=== PATIENT | male | born 1960 | race Two or more races ===

== ENCOUNTER 2022-02-02 20:45 | Inpatient (IN) | payer MEDICAID, OTHER ==
[~2022-02-02] VITALS: Ht 167.6 cm; Wt 107.5 kg
[2022-02-02 22:08] LABS: Basophils # (auto) 0 10 ^3/uL (0-0.2); Basophils % (auto) 0.1 % (0.0-2.0); Eosinophils # (auto) 0 10 ^3/uL (0-0.8); Hematocrit 48.9 % (41.0-53.0); Hemoglobin 16.9 g/dL (13.5-17.5); Lymphocytes # (auto) 0.6 10 ^3/uL (0.4-5.4); Lymphocytes % (auto) 3.1 % (10.0-50.0); Mean Corpuscular Hemoglobin 29.9 pg (28.0-32.0); Mean Corpuscular Hgb Conc. 34.6 g/dL (32.0-36.0); Mean Corpuscular Volume 86.5 fL (80.0-100.0); Monocytes # (auto) 0.6 10 ^3/uL (0-1.3); Monocytes % (auto) 3.3 % (0.0-12.0); Neutrophils # (auto) 17.2 10 ^3/uL (1.6-8.6); Neutrophils % (auto) 93.5 % (37.0-80.0); Nucleated Red Blood Cells % 0.1 %; Red Blood Cells 5.66 10^6/uL (4.5-5.90); Red Cell Distribution Width 14.1 % (11.8-14.3); White Blood Cell 18.4 10^3/uL (4.4-10.8)
[2022-02-02 22:26] LABS: Calcium 10.1 mg/dL (8.5-10.1); Potassium 3.7 mmol/L (3.5-5.1)
[2022-02-02 22:29] LABS: BUN/Creatinine Ratio 8.8
[2022-02-02 22:33] LABS: Bilirubin, Total 0.9 mg/dL (0.2-1.0); Total Protein 10.6 g/dL (6.4-8.2)
[2022-02-03] MEDS ORDERED: SODIUM CHLORIDE 0.9% 1,000 ML IV ONE ×3 (00:45→02:30)
[2022-02-03 01:41] LABS: Lactic Acid w/Reflex 4.8 mmol/L (0.4-2.0)
[2022-02-03] MEDS ORDERED: PIPERACILLIN-TAZOB 3.375GM 100 ML IV ONE (04:00)
[2022-02-03 05:15] LABS: Urine Bacteria FEW /hpf (None Seen); Urine Blood 2+ /uL (Negative); Urine Hyaline Cast MANY /lpf (0 - 2); Urine Mucus FEW (None Seen); Urine Specific Gravity 1.023 (1.001-1.035); Urine Sperm PRESENT /hpf (None Seen); Urine WBC 5 /hpf (0 - 3)
[2022-02-03] MEDS ORDERED: MORPHINE SULFATE INJECTION 2 MG/ML SYRG IV PRN (06:30)
[2022-02-03] MEDS ORDERED: metroNIDAZOLE 500MG/100ML 100 ML IV ONE (06:30)
[2022-02-03] MEDS ORDERED: ONDANSETRON HCL 4 MG/2 ML VIAL IV PRN (06:30)
[2022-02-03] MEDS ORDERED: MORPHINE SULFATE 4 MG/ML SYR/VIAL IV PRN (06:30)
[2022-02-03] MEDS ORDERED: DEXTROSE (50%) 50ML SYRG IV PRN (06:30)
[2022-02-03] MEDS ORDERED: NITROGLYCERIN 0.4 MG SL TAB SL PRN (06:30)
[2022-02-03] MEDS: SODIUM CHLORIDE 0.9% 1,000 ML IV SCH ×2 (06:57→19:01)
[2022-02-03] MEDS: PANTOPRAZOLE 40 MG/10 ML VIAL INJ IV SCH (10:24)
[2022-02-03] MEDS: cefTRIAXone 1GM/50ML D5W 50 ML IV SCH (10:25)
[2022-02-03] MEDS: InsuLIN REG 1unit/0.01ml Soln (100units/ml) SC SCH ×2 (12:00→17:57)
[2022-02-03] MEDS: ACCU-CHEK COMFORT CURVE STRIP VI SCH ×2 (12:25→17:57)
[2022-02-03] MEDS: metroNIDAZOLE 500MG/100ML 100 ML IV SCH ×2 (14:00→21:07)
[2022-02-03 16:25] VITALS: BP 114/76
[2022-02-03 22:00] VITALS: BP 100/62
[2022-02-04] MEDS: ACCU-CHEK COMFORT CURVE STRIP VI SCH ×4 (00:40→19:15)
[2022-02-04] MEDS: InsuLIN REG 1unit/0.01ml Soln (100units/ml) SC SCH ×4 (00:41→18:00)
[2022-02-04] MEDS: SODIUM CHLORIDE 0.9% 1,000 ML IV SCH ×3 (02:38→22:11)
[2022-02-04 05:00] VITALS: BP 115/90
[2022-02-04 06:05] LABS: Basophils # (auto) 0 10 ^3/uL (0-0.2); Basophils % (auto) 0.1 % (0.0-2.0); Eosinophils # (auto) 0 10 ^3/uL (0-0.8); Hematocrit 40.1 % (41.0-53.0); Hemoglobin 14.1 g/dL (13.5-17.5); Mean Corpuscular Hemoglobin 29.8 pg (28.0-32.0); Mean Corpuscular Hgb Conc. 35.2 g/dL (32.0-36.0); Mean Corpuscular Volume 84.6 fL (80.0-100.0); Monocytes # (auto) 0.7 10 ^3/uL (0-1.3); Monocytes % (auto) 4.7 % (0.0-12.0); Neutrophils % (auto) 88.2 % (37.0-80.0); Nucleated Red Blood Cells % 0.1 %; Red Blood Cells 4.74 10^6/uL (4.5-5.90); Red Cell Distribution Width 14.3 % (11.8-14.3); White Blood Cell 14.8 10^3/uL (4.4-10.8)
[2022-02-04 06:14] LABS: Albumin 3.5 g/dL (3.4-5.0); Calcium 8.2 mg/dL (8.5-10.1)
[2022-02-04 06:19] LABS: BUN/Creatinine Ratio 23.3; Bilirubin, Total 0.7 mg/dL (0.2-1.0); Total Protein 7.9 g/dL (6.4-8.2)
[2022-02-04] MEDS: metroNIDAZOLE 500MG/100ML 100 ML IV SCH ×3 (06:31→22:04)
[2022-02-04 08:30] VITALS: BP 108/75
[2022-02-04] MEDS: cefTRIAXone 1GM/50ML D5W 50 ML IV SCH (09:39)
[2022-02-04] MEDS: PANTOPRAZOLE 40 MG/10 ML VIAL INJ IV SCH (09:39)
[2022-02-04 12:35] VITALS: BP 107/69
[2022-02-04 16:15] VITALS: BP 123/67
[2022-02-04 19:27] LABS: Amphetamine Screen, Urine NEGATIVE (NEGATIVE); Barbiturate Scree,Urine NEGATIVE (NEGATIVE); Benzodiazephine Screen, Urine NEGATIVE (NEGATIVE); Cannabinoid Screen, Urine NEGATIVE (NEGATIVE); Cocaine Screen, Urine NEGATIVE (NEGATIVE); Opiate Scree,Urine NEGATIVE (NEGATIVE); Phencyclidine Screen, Urine NEGATIVE (NEGATIVE)
[2022-02-04 22:00] VITALS: BP 97/66
[2022-02-05] MEDS: InsuLIN REG 1unit/0.01ml Soln (100units/ml) SC SCH ×4 (00:48→17:00)
[2022-02-05] MEDS: ACCU-CHEK COMFORT CURVE STRIP VI SCH ×4 (00:48→18:00)
[2022-02-05 05:00] VITALS: BP 95/70
[2022-02-05 05:24] LABS: Basophils # (auto) 0 10 ^3/uL (0-0.2); Basophils % (auto) 0.4 % (0.0-2.0); Eosinophils # (auto) 0 10 ^3/uL (0-0.8); Eosinophils % (auto) 0.4 % (0.0-7.0); Hematocrit 39.9 % (41.0-53.0); Hemoglobin 14.4 g/dL (13.5-17.5); Lymphocytes # (auto) 1.6 10 ^3/uL (0.4-5.4); Lymphocytes % (auto) 19.4 % (10.0-50.0); Mean Corpuscular Hemoglobin 30.2 pg (28.0-32.0); Monocytes # (auto) 0.5 10 ^3/uL (0-1.3); Monocytes % (auto) 5.6 % (0.0-12.0); Neutrophils # (auto) 6.2 10 ^3/uL (1.6-8.6); Neutrophils % (auto) 74.2 % (37.0-80.0); Nucleated Red Blood Cells % 0.2 %; Red Blood Cells 4.75 10^6/uL (4.5-5.90); Red Cell Distribution Width 14.2 % (11.8-14.3); White Blood Cell 8.4 10^3/uL (4.4-10.8)
[2022-02-05 05:43] LABS: Albumin 3.3 g/dL (3.4-5.0); Calcium 8.2 mg/dL (8.5-10.1); Magnesium 2.4 mg/dL (1.6-2.6); Potassium 3.1 mmol/L (3.5-5.1)
[2022-02-05 05:49] LABS: BUN/Creatinine Ratio 18.9; Bilirubin, Total 0.5 mg/dL (0.2-1.0); Total Protein 7.5 g/dL (6.4-8.2)
[2022-02-05] MEDS: metroNIDAZOLE 500MG/100ML 100 ML IV SCH ×3 (06:40→22:00)
[2022-02-05] MEDS: PANTOPRAZOLE 40 MG/10 ML VIAL INJ IV SCH (10:05)
[2022-02-05] MEDS: cefTRIAXone 1GM/50ML D5W 50 ML IV SCH (10:05)
[2022-02-05 10:08] VITALS: BP 94/68
[2022-02-05] MEDS: POTASSIUM CHL 20MEQ/100ML 100 ML IV SCH ×2 (12:24→14:51)
[2022-02-05 13:00] VITALS: BP 96/69
[2022-02-05 17:18] VITALS: BP 90/56
[2022-02-05 22:00] VITALS: BP 105/71
[2022-02-06] MEDS: SODIUM CHLORIDE 0.9% 1,000 ML IV SCH ×2 (00:57→04:30)
[2022-02-06 05:00] VITALS: BP 95/67
[2022-02-06 05:40] LABS: Albumin 2.8 g/dL (3.4-5.0); Calcium 7.9 mg/dL (8.5-10.1); Potassium 3.3 mmol/L (3.5-5.1)
[2022-02-06 05:44] LABS: BUN/Creatinine Ratio 13.1; Bilirubin, Total 0.4 mg/dL (0.2-1.0); Total Protein 6.3 g/dL (6.4-8.2)
[2022-02-06 05:51] LABS: Basophils # (auto) 0 10 ^3/uL (0-0.2); Basophils % (auto) 0.5 % (0.0-2.0); Eosinophils # (auto) 0.1 10 ^3/uL (0-0.8); Eosinophils % (auto) 1.8 % (0.0-7.0); Hematocrit 37.8 % (41.0-53.0); Lymphocytes # (auto) 1.9 10 ^3/uL (0.4-5.4); Lymphocytes % (auto) 35.5 % (10.0-50.0); Mean Corpuscular Hemoglobin 29.3 pg (28.0-32.0); Mean Corpuscular Hgb Conc. 34.6 g/dL (32.0-36.0); Mean Corpuscular Volume 84.9 fL (80.0-100.0); Monocytes # (auto) 0.5 10 ^3/uL (0-1.3); Monocytes % (auto) 9.1 % (0.0-12.0); Neutrophils # (auto) 2.8 10 ^3/uL (1.6-8.6); Neutrophils % (auto) 53.1 % (37.0-80.0); Red Blood Cells 4.45 10^6/uL (4.5-5.90); Red Cell Distribution Width 14.1 % (11.8-14.3); White Blood Cell 5.3 10^3/uL (4.4-10.8)
[2022-02-06] MEDS: metroNIDAZOLE 500MG/100ML 100 ML IV SCH ×3 (06:00→21:17)
[2022-02-06] MEDS: InsuLIN REG 1unit/0.01ml Soln (100units/ml) SC SCH ×4 (06:00→16:49)
[2022-02-06] MEDS: ACCU-CHEK COMFORT CURVE STRIP VI SCH ×4 (06:00→16:49)
[2022-02-06 08:16] LABS: Hepatitis B Surface Antibody Negative (Negative)
[2022-02-06 08:51] LABS: Hepatitis A Total Antibody Positive (Negative)
[2022-02-06 09:00] VITALS: BP_SYST 101; BP_SYST 124; BP_DIAS 69; BP_DIAS 71
[2022-02-06] MEDS: CHOLECALCIFEROL (VITD3) 2,000 UNIT CAP/TAB PO SCH (09:41)
[2022-02-06] MEDS: PANTOPRAZOLE 40 MG/10 ML VIAL INJ IV SCH (09:41)
[2022-02-06] MEDS: cefTRIAXone 1GM/50ML D5W 50 ML IV SCH (09:41)
[2022-02-06] MEDS: POTASSIUM CHL 20MEQ/100ML 100 ML IV SCH ×2 (11:00→15:02)
[2022-02-06] MEDS: D5W/SOD CHL 0.45%/KCL 40MEQ 1,000 ML IV SCH ×2 (11:01→21:17)
[2022-02-06 11:36] LABS: Hepatitis C Antibody Negative (Negative)
[2022-02-06 13:00] VITALS: BP 99/66
[2022-02-06 16:58] VITALS: BP 96/70
[2022-02-06 22:00] VITALS: BP 102/68
[2022-02-07] MEDS: ACCU-CHEK COMFORT CURVE STRIP VI SCH ×3 (00:58→12:48)
[2022-02-07] MEDS: InsuLIN REG 1unit/0.01ml Soln (100units/ml) SC SCH ×3 (00:58→12:00)
[2022-02-07 05:00] VITALS: BP 107/62
[2022-02-07 06:25] LABS: Albumin 2.8 g/dL (3.4-5.0); Magnesium 2.1 mg/dL (1.6-2.6); Potassium 3.4 mmol/L (3.5-5.1)
[2022-02-07] MEDS: metroNIDAZOLE 500MG/100ML 100 ML IV SCH ×2 (06:25→14:30)
[2022-02-07] MEDS: D5W/SOD CHL 0.45%/KCL 40MEQ 1,000 ML IV SCH (06:25)
[2022-02-07 06:28] LABS: Bilirubin, Direct 0.1 mg/dL (0-0.2); Bilirubin, Total 0.6 mg/dL (0.2-1.0); Total Protein 6.3 g/dL (6.4-8.2)
[2022-02-07] MEDS: PANTOPRAZOLE 40 MG/10 ML VIAL INJ IV SCH (09:21)
[2022-02-07] MEDS: cefTRIAXone 1GM/50ML D5W 50 ML IV SCH (09:21)
[2022-02-07] MEDS: CHOLECALCIFEROL (VITD3) 2,000 UNIT CAP/TAB PO SCH (09:21)
[2022-02-07 09:41] VITALS: BP 105/69
[2022-02-07] MEDS ORDERED: METR500T PO (12:29)
[2022-02-07] MEDS ORDERED: CHOL20007 PO (12:29)
[2022-02-07] MEDS ORDERED: LEVO500T31 PO (12:29)
[2022-02-07] MEDS ORDERED: PANT40TA2 PO (12:29)
[2022-02-07] MEDS ORDERED: POTASSIUM EFFERVESENT TAB 25 MEQ PO ONE (12:30)
[2022-02-07 13:00] VITALS: BP 129/79
[2022-02-07 13:19] VITALS: BP 105/69
== END 2022-02-07 15:00 | disposition home or self-care (01) | DRG 720 ==
LOC: ER 20:49 → TELE 02-03 06:22 → TELE-WESTW 02-03 09:06
PROVIDERS: ADMIT Nurse Practitioner; ATTEND Internal Medicine
DX: A41.9 Sepsis, unspecified organism (principal); N17.0 Acute kidney failure with tubular necrosis; E87.6 Hypokalemia; N17.9 Acute kidney failure, unspecified; E66.01 Morbid (severe) obesity due to excess calories; E55.9 Vitamin D deficiency, unspecified; Z20.822 Contact with and (suspected) exposure to COVID-19; R73.03 Prediabetes; A08.4 Viral intestinal infection, unspecified; K21.9 Gastro-esophageal reflux disease without esophagitis; Z83.3 Family history of diabetes mellitus; Z87.442 Personal history of urinary calculi; Z68.37 Body mass index [BMI] 37.0-37.9, adult
CPT/HCPCS: 36415; 71045; 74176; 76705; 80053; 80061; 80076; 80307; 81001; 82010; 82306; 82962; 83036; 83605; 83690; 83735; 84132; 84443; 84484; 85025; 85048; 85379; 86704; 86706; 86708; 86803; 87040; 87045; 87205; 87340; 87427; 87493; 93306; 96361; 96365; 96367; 99291; C9113; G0378; J0696; J1815; J2543; J3480; J3490